=== PATIENT | female | born 1985 | race Caucasian/White ===

== ENCOUNTER 2022-12-22 05:35 | Day surgery (SDC) | payer SELFPAY, OTHER ==
[2022-12-09 12:29] LABS: Hematocrit 41.9 % (37-47); Hemoglobin 14.2 g/dL (12.0-15.0); Mean Corp Hgb Conc 33.9 g/dL (32-36); Mean Corpuscular Hgb 32.3 pg (27.0-32.0); Mean Corpuscular Volume 95.2 fL (81-99); Mean Platelet Vol. 9.5 fl (6.2-12.0); Platelet Count 250 K/mm3 (150-450); RBC Distribution Width CV 13.2 % (11.6-14.6); RBC Distribution Width SD 46.3 fl (35.1-43.9)
[2022-12-22] VITALS (7 sets, daily range): BP systolic 111–124; BP diastolic 71–84; PULSE 55–66; RESP 14–16; TEMP 36.6–36.8; O2SAT 94–100; BMI 25.2
--- NOTE | 2022-12-22 | FALS_PTH ---
PATIENT: GARLAND ROSE LOC: [facility] U#:[id number] AGE/SX: 37/F ROOM: RE12/22/[address]: Dr. Kana Palmer MD : 1985 BED: DIS: 12/22/2022 SPEC #: [id number] RECD: 12/22/22 13:06 STATUS: NANDINI JOSE RAUL #: [id number] JULITA: 12/22/22 00:[address]: Kana Palmer DEPT: SURGICAL PATHOLOGY RECD BY: Mckay Farrell ENTERED: 12/22/22 13:06 SP TYPE: FALL TUBES OTHR DR: Dr. Dioni Nicole MD Tissues: Fallopian tube Procedures: Surgery Specimen Level II HEADER OPERATION: Lap tubal ligation PRE-OP DIAGNOSIS: Sterilization TISSUE SUBMITTED: Fallopian tubes MICROSCOPIC DIAGNOSIS Bilateral fallopian tubes, salpingectomy: Bilateral fallopian tubes, no pathologic diagnosis. ALEX:memo 12/23/2022 MICROSCOPIC DESCRIPTION Slides are reviewed. GROSS DESCRIPTION Received in fixative is one container labeled with the patient's name and designated bilateral fallopian tubes. The specimen consists of bilateral fallopian tubes including fimbrial ends measuring 9.5 cm in length and 0.5 cm in diameter and 7.5 cm in length and 0.5 cm in diameter. The fallopian tubes are not identified as right or left. Sections reveal unremarkable cut surfaces. Game Advisor sections are submitted in two cassettes with each cassette containing one fallopian tube. / SJ:memo 12/22/2022 TC:4 CPT: 74718 x2
[2022-12-22 06:32] LABS: Internal QC Validated? YES +Cl - CLEAR BKGD; Pregnancy, Urine Negative Negative
[2022-12-22] MEDS: Lactated Ringers 1,000 ML 15 ML IV (06:58)
--- NOTE | 2022-12-22 07:31 | PCM.HP.BLA ---
History and Physical Date of Admission: 12/22/22 Chief complaint: Desires permanent sterilization History present illness: 37-year-old arrives for laparoscopic tubal ligation for desired permanent sterilization. No medical changes since last seen. All questions answered and consent signed. Obstetric history: G 7P5 history of vaginal deliveries Past medical history: Anxiety depression Medications: Celexa Allergies: Cephalexin Past surgical history: None Family history: Denies history DVT or PE Social history: Denies smoking, alcohol use, drug use Review of systems: Besides above pertinent positives a full review of systems was performed and found to be negative Physical exam: Vitals: Blood pressure 111/76 pulse 66 respiratory rate 16 temperature 97.9 ?F SPO2 99% on room air General: Normal-appearing no acute distress HEENT: Normocephalic/atraumatic no cervical lymphadenopathy Cardiac/respiratory: No use of accessory muscles, nonlabored breathing Abdomen: Soft, nontender, nondistended Extremities: No peripheral edema normal peripheral pulses Psych: Normal affect and remainder nonpressured speech Labs: Urine test negative Assessment plan: 37-year-old arrives for laparoscopic tubal ligation for desires permanent sterilization. Patient understands risk of the procedure include but are not limited to visceral vascular injury, prolonged hospitalization, blood loss need for transfusion, reoperation. Patient state understanding wish to proceed. All questions were answered and consent was signed.
--- NOTE | 2022-12-22 08:15 | DCINST_ITS ---
Discharge Instructions Diet Discharge Diet: No restrictions Activity Discharge Activity: Return to Normal Activity, May Drive, May Shower and - (No tub baths for 2 weeks) May resume sexual activity in: 4-6 weeks Lifting Restrictions: No lifting over 25 pounds for 2 to 3 weeks Dressing / Incision Call your doctor if your incision/area has: Continuous Slow Oozing and Foul Smelling Discharge Call your doctor if you observe: Fever of 101 or Higher, Shortness of breath and Chest pain Follow Up Care Please Follow Up With: Kana Palemr MD When: 2 weeks postoperatively Test Results: Test results from this visit will be discussed in further detail at your follow- up appointment, if applicable. Discharge Plan Admission Attending Provider: Kana Palmer Primary Care Provider: Dioni Nicole Discharge Orders/Prescriptions Prescriptions: No Action citalopram 10 mg tablet 10 mg PO DAILY Label Comments: TAKE ONE TABLET BY MOUTH EVERY DAY ascorbic acid (vitamin C) [Vitamin C] 500 mg Tablet 500 mg PO DAILY Probiotic 10 billion cell Capsule 10,000 mmu cells PO DAILY Referrals / Follow Up: Dioni Nicole MD [Primary Care Provider] - Disposition Disposition (needs filled in before D/C Order can be placed): Home, Self Care
--- NOTE | 2022-12-22 08:16 | PCM.OPRPT ---
Report of Operation Date of Procedure: 12/22/22 Pre-Operative Diagnosis: Desires permanent sterilization Post-Operative Diagnosis: Desires permanent sterilization Surgery/Procedure Performed:: Laparoscopic bilateral salpingectomy Description of Surgical Findings:: Surgeon: Kana Palmer MD Anesthesia: General EBL: 5 cc Urine output: 1000 cc IV fluids: 600 cc Complications: None Specimen: Bilateral fallopian tubes Findings: Normal uterus, tubes, and ovaries Consent: Patient desires permanent sterilization elects for laparoscopic tubal ligation. Patient understands risk of the procedure include but are not limited to visceral vascular injury, prolonged hospitalization, blood loss need for transfusion, reoperation. Patient state understanding and wished to proceed. All questions were answered and consent was signed. Procedure: Patient was brought back to the OR where general anesthesia found to be adequate. Patient was prepared and draped in dorsolithotomy position with yellowfin stirrups. A weighted speculum is placed in the posterior aspect of the vagina and cervical dilators were used to dilate the cervix. Uterine manipulator was placed. Veress needle was inserted at the umbilicus and water safety test was passed. Abdomen was insufflated. 5 mm supraumbilical midline trocar was inserted under direct visualization. Laparoscope was inserted and above findings were noted. Left lower quadrant 5 mm trocar was inserted under direct visualization. 8 mm right lower quadrant trocar was inserted under direct visualization. Using an atraumatic grasper and a LigaSure device the left fallopian tube was identified to the fimbria and the mesosalpinx was cut and cauterized, fallopian tube was transected at the cornua and removed from the abdominal cavity, sent to pathology. Right fallopian tube was identified to the fimbria and the mesosalpinx was cut and cauterized, fallopian tube was transected at the cornua, fallopian tube was removed from the abdominal cavity and sent to pathology. Bilateral hemostasis was noted at surgical sites. Abdomen was desufflated, trocars were removed under direct visualization, good hemostasis was noted. Laparoscopic incision sites were closed in a subcutaneous fashion and skin glue was placed over the incisions. Good hemostasis was noted. Uterine manipulator was removed and good hemostasis was noted. Good hemostasis was noted, all counts were correct x2. Patient tolerated procedure well and was brought to recovery in a stable condition. early childhood associate teacher: Jose Horton
[2022-12-22] MEDS: Ketorolac 30 MG/ML Syringe IV (09:16)
== END 2022-12-22 10:42 | disposition home or self-care (01) ==
LOC: SDC 05:40 → AC 05:41
PROVIDERS: Anesthesiology; PCP Family Medicine; Referring Provider Obstetrics & Gynecology; Visit Provider Obstetrics & Gynecology
PROC: (CPT 58661; principal; 2022-12-22 07:15)
DX: Z30.2 Encounter for sterilization (principal); F41.9 Anxiety disorder, unspecified; F32.A Depression, unspecified
CPT/HCPCS: 58661; 00840; 36415; 81025; 85027; 86850; 86900; 86901; 88302; J7120; J2405